=== PATIENT | male | born 1975 | race Caucasian/White ===

== ENCOUNTER 2022-02-07 09:22 | Emergency (ER) | payer MEDICAID ==
[~2022-02-07] VITALS: Ht 172.7 cm; Wt 86.0 kg
[2022-02-07 09:34] VITALS: BP 149/96
[2022-02-07] MEDS ORDERED: KETOROLAC 60MG/2ML VIAL IM ONE (11:45)
[2022-02-07] MEDS ORDERED: NAPR-681 MT (12:19)
== END 2022-02-07 13:21 | disposition home or self-care (01) ==
LOC: ER 09:22
DX: M25.561 Pain in right knee (principal); V00.131A Fall from skateboard, initial encounter; Y93.89 Activity, other specified; Y92.89 Other specified places as the place of occurrence of the external cause; Y99.8 Other external cause status
CPT/HCPCS: 29505; 73562; 96372; 99283; J1885

== ENCOUNTER 2022-08-04 12:37 | Emergency (ER) | payer MEDICAID ==
[~2022-08-04] VITALS: Ht 175.3 cm; Wt 84.0 kg
[~2022-08-04 12:37] MED LIST: NAPR-681 MT
[2022-08-04 12:41] VITALS: BP 178/100
[2022-08-04] MEDS ORDERED: IBUP-2029 MT (15:48)
[2022-08-04] MEDS ORDERED: CEPH500C2 MT (15:48)
== END 2022-08-04 16:35 | disposition home or self-care (01) ==
LOC: ER 13:37
DX: S91.011A Laceration without foreign body, right ankle, initial encounter (principal); X58.XXXA Exposure to other specified factors, initial encounter; Y93.89 Activity, other specified; Y92.89 Other specified places as the place of occurrence of the external cause; Y99.8 Other external cause status
CPT/HCPCS: 99283; Z7610